=== PATIENT | male | born 1950 | race Caucasian/White ===

== ENCOUNTER 2021-01-13 11:52 | Emergency (ER) | payer MEDICARE, BC ==
[2021-01-13 12:01] VITALS: BP 175/92; PULSE 68
[2021-01-13] MEDS ORDERED: Ondansetron 4 MG/2 ML SDV IVPUSH ONE (12:09)
[2021-01-13] MEDS ORDERED: Sodium Chloride 0.9% 10 ML Syringe FLUSH PRN (12:10)
[2021-01-13] MEDS ORDERED: Sodium Chloride 0.9% 1,000 ML IV SCH (12:15)
--- NOTE | 2021-01-13 12:20 | EDM.PDOC ---
ED HPI GENERAL MEDICAL PROBLEM - General Chief Complaint: Gastrointestinal Problem Stated Complaint: BLEEDING INTO COLON Time Seen by Provider: 01/13/21 11:58 Source of Information: Reports: Patient, RN Notes Reviewed History Limitations: Reports: No Limitations - History of Present Illness INITIAL COMMENTS - FREE TEXT/NARRATIVE: Patient is a 70-year-old male who presents to the ER for the evaluation of his rectal bleeding. Patient states that this morning he developed bright red blood, in his stool. He had a normal bowel movement this morning, but then had 3 episodes about 30 minutes apart that had quite a bit of bright red blood. He states he has never had this happen before. He notes that the stools were liquid and there was no form to it at all. He does have a history of diverticulitis however he is having some lower abdominal discomfort, but nothing that he would consider actual pain. States he feels nauseous, and also somewhat lightheaded. He has not had any fevers or chills, cough or shortness of breath, or any sort of vomiting. Patient's primary care provider is Dr. Wiley and [facility]. States his last colonoscopy was over 10 years ago, he was due for one last year however due to COVID-19, one was not performed. - Related Data Allergies Allergy/AdvReac Type Severity Reaction Status Date / Time Penicillins Allergy Severe Itching Verified 01/13/21 12:01 Home Meds: Home Meds Doxazosin Mesylate [Cardura] 2 mg PO DAILY 10/21/15 [History] Lisinopril [Prinivil] 20 mg PO DAILY 10/21/15 [History] Latanoprost/Pf [Latanoprost 0.005% Eye Drop] 1 drop OP DAILY 01/13/21 [History] Past Medical History HEENT History: Reports: Glaucoma Cardiovascular History: Reports: Hypertension Genitourinary History: Reports: BPH - Past Surgical History GI Surgical History: Reports: Cholecystectomy Musculoskeletal Surgical History: Reports: ORIF Social & Family History - Tobacco Use Tobacco Use Status *Q: Never Tobacco User - Caffeine Use Caffeine Use: Reports: Soda - Recreational Drug Use Recreational Drug Use: No - Living Situation & Occupation Occupation: Employed ED ROS GENERAL - Review of Systems Review Of Systems: Comprehensive ROS is negative, except as noted in HPI. ED EXAM, GI/ABD - Physical Exam Exam: See Below Exam Limited By: No Limitations General Appearance: Alert, WD/WN, No Apparent Distress Respiratory/Chest: No Respiratory Distress, Lungs Clear, Normal Breath Sounds, No Accessory Muscle Use, Chest Non-Tender Cardiovascular: Normal Peripheral Pulses, Regular Rate, Rhythm, No Edema GI/Abdominal Exam: Normal Bowel Sounds, Soft, Non-Tender, No Distention, No Mass Rectal (Males) Exam: Deferred Neurological: Alert, Oriented, Normal Cognition, No Motor/Sensory Deficits Psychiatric: Normal Affect, Normal Mood Skin Exam: Warm, Dry, Intact, Normal Color, No Rash Course - Vital Signs Last Recorded V/S: Last Vital Signs Temp 96.8 F L 01/13/21 11:57 Pulse 68 01/13/21 11:57 Resp 16 01/13/21 11:57 BP 175/92 H 01/13/21 11:57 Pulse Ox 94 L 01/13/21 11:57 - Orders/Labs/Meds Orders: Active Orders 24 hr Category Date Time Status Peripheral IV Care [RC] . DIRECTED Care 01/13/21 12:10 Ordered PATIENT RETYPE [BBK] Routine Lab 01/13/21 13:08 Ordered Sodium Chloride 0.9% [Normal Saline] 1,000 ml Med 01/13/21 12:15 Ordered IV ASDIRECTED Sodium Chloride 0.9% [Saline Flush] Med 01/13/21 12:10 Ordered 10 ml FLUSH ASDIRECTED PRN Peripheral IV Insertion Adult [OM.PC] Routine Oth 01/13/21 12:10 Ordered Medication Orders Sodium Chloride (Normal Saline) 1,000 mls @ 999 mls/hr IV ASDIRECTED MICHAEL Last Admin: 01/13/21 12:24 Dose: 999 mls/hr Documented by: SHORTY Sodium Chloride (Sodium Chloride 0.9% 10 Ml Syringe) 10 ml FLUSH ASDIRECTED PRN PRN Reason: Keep Vein Open Last Admin: 01/13/21 14:07 Dose: 10 ml Documented by: VICK Labs: Laboratory Tests 01/13/21 01/13/21 01/13/21 Range/Units 12:00 12:00 12:00 WBC 8.75 (4.23-9.07) K/mm3 RBC 5.62 (4.63-6.08) M/mm3 Hgb 17.3 (13.7-17.5) gm/dl Hct 51.7 H (40.1-51.0) % MCV 92.0 (79.0-92.2) fl MCH 30.8 (25.7-32.2) pg MCHC 33.5 (32.2-35.5) g/dl RDW Std Deviation 46.1 H (35.1-43.9) fL Plt Count 215 (163-337) K/mm3 MPV 9.7 (9.4-12.3) fl Neut % (Auto) 71.6 H (34.0-67.9) % Lymph % (Auto) 17.6 L (21.8-53.1) % Harris % (Auto) 9.4 (5.3-12.2) % Eos % (Auto) 1.1 (0.8-7.0) Baso % (Auto) 0.2 (0.1-1.2) % Neut # (Auto) 6.26 H (1.78-5.38) K/mm3 Lymph # (Auto) 1.54 (1.32-3.57) K/mm3 Harris # (Auto) 0.82 (0.30-0.82) K/mm3 Eos # (Auto) 0.10 (0.04-0.54) K/mm3 Baso # (Auto) 0.02 (0.01-0.08) K/mm3 Sodium 140 (136-145) mEq/L Potassium 3.5 (3.5-5.1) mEq/L Chloride 103 (98-107) mEq/L Carbon Dioxide 25 (21-32) mEq/L Anion Gap 15.5 H (5-15) BUN 19 H (7-18) mg/dL Creatinine 1.2 (0.7-1.3) mg/dL Est Cr Clr Drug Dosing 58.30 mL/min Estimated GFR (MDRD) 60 (>60) mL/min BUN/Creatinine Ratio 15.8 (14-18) Glucose 151 H (70-99) mg/dL Calcium 8.9 (8.5-10.1) mg/dL Total Bilirubin 0.6 (0.2-1.0) mg/dL AST 26 (15-37) U/L ALT 44 (16-63) U/L Alkaline Phosphatase 78 (46-116) U/L Total Protein 7.2 (6.4-8.2) g/dl Albumin 3.7 (3.4-5.0) g/dl Globulin 3.5 gm/dL Albumin/Globulin Ratio 1.1 (1-2) Lipase 81 (73-393) U/L Urine Color (Yellow) Urine Appearance (Clear) Urine pH (5.0-8.0) Ur Specific Ovid (1.005-1.030) Urine Protein (Negative) Urine Glucose (UA) (Negative) Urine Ketones (Negative) Urine Occult Blood (Negative) Urine Nitrite (Negative) Urine Bilirubin (Negative) Urine Urobilinogen (0.2-1.0) Ur Leukocyte Esterase (Negative) Urine RBC (0-5) /hpf Urine WBC (0-5) /hpf Ur Squamous Epith Cells (0-5) /hpf Urine Bacteria (FEW) /hpf Urine Mucus (FEW) /hpf Blood Type O POSITIVE Gel Antibody Screen Negative 01/13/21 Range/Units 13:35 WBC (4.23-9.07) K/mm3 RBC (4.63-6.08) M/mm3 Hgb (13.7-17.5) gm/dl Hct (40.1-51.0) % MCV (79.0-92.2) fl MCH (25.7-32.2) pg MCHC (32.2-35.5) g/dl RDW Std Deviation (35.1-43.9) fL Plt Count (163-337) K/mm3 MPV (9.4-12.3) fl Neut % (Auto) (34.0-67.9) % Lymph % (Auto) (21.8-53.1) % Harris % (Auto) (5.3-12.2) % Eos % (Auto) (0.8-7.0) Baso % (Auto) (0.1-1.2) % Neut # (Auto) (1.78-5.38) K/mm3 Lymph # (Auto) (1.32-3.57) K/mm3 Harris # (Auto) (0.30-0.82) K/mm3 Eos # (Auto) (0.04-0.54) K/mm3 Baso # (Auto) (0.01-0.08) K/mm3 Sodium (136-145) mEq/L Potassium (3.5-5.1) mEq/L Chloride (98-107) mEq/L Carbon Dioxide (21-32) mEq/L Anion Gap (5-15) BUN (7-18) mg/dL Creatinine (0.7-1.3) mg/dL Est Cr Clr Drug Dosing mL/min Estimated GFR (MDRD) (>60) mL/min BUN/Creatinine Ratio (14-18) Glucose (70-99) mg/dL Calcium (8.5-10.1) mg/dL Total Bilirubin (0.2-1.0) mg/dL AST (15-37) U/L ALT (16-63) U/L Alkaline Phosphatase (46-116) U/L Total Protein (6.4-8.2) g/dl Albumin (3.4-5.0) g/dl Globulin gm/dL Albumin/Globulin Ratio (1-2) Lipase (73-393) U/L Urine Color Light yellow (Yellow) Urine Appearance Clear (Clear) Urine pH 6.0 (5.0-8.0) Ur Specific Ovid 1.025 (1.005-1.030) Urine Protein Negative (Negative) Urine Glucose (UA) Negative (Negative) Urine Ketones Negative (Negative) Urine Occult Blood Negative (Negative) Urine Nitrite Negative (Negative) Urine Bilirubin Negative (Negative) Urine Urobilinogen 0.2 (0.2-1.0) Ur Leukocyte Esterase Negative (Negative) Urine RBC 0-5 (0-5) /hpf Urine WBC 0-5 (0-5) /hpf Ur Squamous Epith Cells 0-5 (0-5) /hpf Urine Bacteria Few (FEW) /hpf Urine Mucus Few (FEW) /hpf Blood Type Gel Antibody Screen Meds: Medications Generic Name Dose Route Start Last Admin Trade Name Freq PRN Reason Stop Dose Admin Sodium Chloride 1,000 mls @ 999 mls/hr 01/13/21 12:15 01/13/21 12:24 Normal Saline IV 999 mls/hr ASDIRECTED MICHAEL Administration Sodium Chloride 10 ml 01/13/21 12:10 01/13/21 14:07 Sodium Chloride 0.9% 10 Ml Syringe FLUSH 10 ml ASDIRECTED PRN Administration Keep Vein Open Discontinued Medications Generic Name Dose Route Start Last Admin Trade Name Freq PRN Reason Stop Dose Admin Diatrizoate Meglum/Diatrizoate Sod 90 ml 01/13/21 12:45 01/13/21 14:07 Diatrizoate Meglumine/Diatrizoate Sodium 37% 120 Ml Bottle PO 01/13/21 12:46 30 ml ONETIME ONE Administration Iopamidol 100 ml 01/13/21 12:45 01/13/21 14:07 Iopamidol 612 Mg/Ml 100 Ml Bottle IVPUSH 01/13/21 12:46 100 ml ONETIME ONE Administration Iopamidol 50 ml 01/13/21 13:49 01/13/21 14:07 Iopamidol 612 Mg/Ml 50 Ml Sdv IVPUSH 01/13/21 13:50 50 ml ONETIME ONE Administration Ondansetron HCl 4 mg 01/13/21 12:09 01/13/21 12:24 Ondansetron 4 Mg/2 Ml Sdv IVPUSH 01/13/21 12:10 4 mg ONETIME ONE Administration Sodium Chloride 10 ml 01/13/21 13:30 Sodium Chloride 0.9% 10 Ml Syringe FLUSH 01/13/21 13:31 ONETIME ONE - Re-Assessments/Exams Free Text/Narrative Re-Assessment/Exam: 01/13/21 12:21 Patient presents to the ER for his rectal bleeding, we will go ahead and get some basic labs, given some IV fluids, check a type and screen and an abdominal pelvis CT with IV and oral contrast for further evaluation. 01/13/21 14:31 The patient's labs have resulted, his hemoglobin is within normal limits at 17.3, white cell count not elevated. Metabolic panel demonstrates a BUN elevated at 19, other portions of metabolic panel are essentially unremarkable, urinalysis is negative. CT has been performed, there is no sign of acute diverticulitis at today's visit, no other acute abdominal pelvic findings that would be the cause of the GI bleeding. I will go ahead and consult his case with our general surgeon on-call for further management. 01/13/21 14:41 Dr. Zazueta did not have any worrisome considerations, and does recommend the patient be discharged home with clear liquids, monitor his symptoms and return if anything worsens, patient is okay with this and verbalized understanding with the plan. He will follow Dr. Zazueta in her clinic on Monday he will have to call and make the appointment. Departure - Departure Time of Disposition: 14:42 Disposition: Home, Self-Care 01 Condition: Good Clinical Impression: Rectal bleeding - Discharge Information *PRESCRIPTION DRUG MONITORING PROGRAM REVIEWED*: No *COPY OF PRESCRIPTION DRUG MONITORING REPORT IN PATIENT MELVIN: No Instructions: Rectal Bleeding, [id number] Referrals: Nna Bowen MD [Physician] - 2 Days Forms: ED Department Discharge Additional Instructions: You were evaluated in the ER today for your rectal bleeding. Laboratory evaluation demonstrated that your hemoglobin was within normal limits, this is a good thing. Your CT demonstrated no acute abdominal findings to suggest a cause of the bleeding. You will need to follow-up with Dr. Zazueta, she is a general surgeon at [facility], her telephone number is [phone]. Please call today, to obtain an appointment on Monday, she wass made aware that you will be calling and should be expecting you on her schedule. She recommends that you stick to a clear liquid diet over the next 24 to 48 hours, to see if this helps relieve some of her symptoms. If you start developing any further rectal bleeding, dizziness/lightheadedness, or any sort of low blood pressure issues, you should return immediately to the ER for further management. Sepsis Event Note (ED) - Evaluation Sepsis Screening Result: No Definite Risk - Focused Exam Vital Signs: Vital Signs Temp Pulse Resp BP Pulse Ox 01/13/21 11:57 96.8 F L 68 16 175/92 H 94 L - My Orders Last 24 Hours: My Active Orders 01/13/21 12:10 Peripheral IV Care [RC] . DIRECTED Sodium Chloride 0.9% [Saline Flush] 10 ml FLUSH ASDIRECTED PRN Peripheral IV Insertion Adult [OM.PC] Routine 01/13/21 12:15 Sodium Chloride 0.9% [Normal Saline] 1,000 ml IV ASDIRECTED 01/13/21 13:08 PATIENT RETYPE [BBK] Routine - Assessment/Plan Last 24 Hours: My Active Orders 01/13/21 12:10 Peripheral IV Care [RC] . DIRECTED Sodium Chloride 0.9% [Saline Flush] 10 ml FLUSH ASDIRECTED PRN Peripheral IV Insertion Adult [OM.PC] Routine 01/13/21 12:15 Sodium Chloride 0.9% [Normal Saline] 1,000 ml IV ASDIRECTED 01/13/21 13:08 PATIENT RETYPE [BBK] Routine
[2021-01-13] MEDS ORDERED: Diatrizoate Meglumine/Diatrizoate Sodium 37% 120 ML Bottle PO ONE (12:45)
[2021-01-13] MEDS ORDERED: Iopamidol 612 MG/ML 100 ML Bottle IVPUSH ONE (12:45)
[2021-01-13] MEDS ORDERED: Sodium Chloride 0.9% 10 ML Syringe FLUSH ONE (13:30)
[2021-01-13] MEDS ORDERED: Iopamidol 612 MG/ML 50 ML SDV IVPUSH ONE (13:49)
--- NOTE | 2021-01-13 14:28 | CT ---
CT abdomen and pelvis Technique: Multiple axial sections were obtained from above the dome of the diaphragm inferiorly through the pubic symphysis. Intravenous and oral contrast was utilized. Delayed images were also obtained to the bladder. Reconstructed coronal and sagittal images were obtained. Comparison: Prior noncontrast CT study of the abdomen and pelvis dated 10/21/15. Findings: Visualized lung bases show nothing acute. Liver contains no focal parenchymal abnormality. Surgical clips are seen from prior cholecystectomy. Minimal gastroesophageal reflux is seen of contrast. Spleen size is normal. Adrenal glands show no nodule. Pancreas shows no abnormality. Cysts are noted within both kidneys. Cysts otherwise show symmetric contrast enhancement. No discrete solid renal abnormality is appreciated. Abdominal aorta shows mild atherosclerotic change with no aneurysm. No retroperitoneal adenopathy is seen. Appendix is not definitely visualized. Diverticula are noted off the posterolateral bladder on the left side measuring 5.5 cm. This is stable from prior exam. Diverticuli are seen within the descending and sigmoid regions of the colon. No inflammatory change of diverticulitis is seen. Prostate gland is slightly enlarged. Delayed images show contrast within the distal ureters and within the bladder. Bone window settings were reviewed which show minimal degenerative change scattered within the spine. No acute osseous abnormality is appreciated. Very minimal fat-containing umbilical hernia is noted. Impression: 1. Numerous findings as described above. 2. Nothing acute is appreciated on CT study of the abdomen and pelvis. Diagnostic code #2
== END 2021-01-13 15:00 | disposition home or self-care (01) ==
LOC: JD.ED 11:52
DX: K62.5 Hemorrhage of anus and rectum (principal); I10 Essential (primary) hypertension
CPT/HCPCS: 36415; 74177; 80053; 81001; 83690; 85025; 86850; 86900; 86901; 96374; 99284; J2405; J7030; Q9967